=== PATIENT | male | born 1990 | race African-American/Black ===

== ENCOUNTER 2016-04-08 17:30 | Emergency (ER) | payer OTHER ==
[~2016-04-08] VITALS: Ht 170.2 cm; Wt 72.7 kg
[2016-04-08 17:31] VITALS: BP 125/71; PULSE 52; RESP 16; TEMP 98.2; O2SAT 95
[2016-04-08] MEDS ORDERED: ALBU6.7H INH (19:40)
--- NOTE | 2016-04-08 19:43 | PD ---
HPI Chief Complaint: Medication Refill Request Time Seen by Provider: 19:41 Travel History International Travel<30 days: No Contact w/Intl Traveler<30days: No Traveled to known affect area: No History of Present Illness HPI 26-year-old black male presents to emergency department requesting a refill of his inhaler. The patient states that he ran out of his inhaler. He uses it probably 5 times a week. He states that he felt some mild wheezing earlier today and then ran out of his inhaler. He is not having any shortness of breath or wheezing now. He does not have a primary care doctor. He denies any fever chills. No earache or sore throat. No nausea vomiting. No abdominal pain or diarrhea. [facility] Past Medical History Narrative Medical aSTHMA Tetanus Vaccination: < 5 Years Past Surgical History Surgical History: No Previous Surgery Social History Alcohol Use: Yes Tobacco Use: No Review of Systems Except as stated in HPI: all other systems reviewed are Neg Physical Exam Narrative GENERAL: Well-developed, well-nourished in no acute distress. Nontoxic appearing. HEAD: Normocephalic, atraumatic. EYES: Pupils equal round and reactive. Extraocular motions intact. No scleral icterus. No injection or drainage. ENT: TMs clear without erythema. The external auditory canals clear. Nose: clear . Posterior pharynx is pink and moist. No tonsillar edema or exudate. Uvula midline. Airway patent. NECK: Trachea midline.Supple, nontender, moves head freely. No central bony tenderness or spasm. CARDIOVASCULAR: Regular rate and rhythm without murmurs, gallops, or rubs. RESPIRATORY: Clear to auscultation. Breath sounds equal bilaterally. No wheezes , rales, or rhonchi. GASTROINTESTINAL: Abdomen soft, non-tender, nondistended. No hepato-splenomegaly , or palpable masses. No guarding. EXTREMITIES: No clubbing, cyanosis, or edema. No joint tenderness, effusion, or edema noted. BACK: Nontender without deformity or crepitance. No flank tenderness. Data Data Last Documented VS Vital Signs Date Time Temp Pulse Resp B/P Pulse Ox O2 Delivery O2 Flow Rate FiO2 04/08/16 17:31 98.2 52 16 125/71 95 Room Air MDM Medical Decision Making Medical Screen Exam Complete: Yes Emergency Medical Condition: Yes Medical Record Reviewed: Yes Differential Diagnosis MDM: High Differential diagnoses: Pneumonia, bronchitis, URI, asthma, RAD, legionnaire's disease, SARS, ARDS, influenza, bronchiolitis, RSV,PE,CHF Narrative Course This is asthma, medication refill Diagnosis Primary Impression: Asthma Qualified Code: J45.20 - Mild intermittent asthma without complication Additional Impression: Medication refill Patient Instructions: General Instructions Additional Instructions: Rest. Increase fluids. Tylenol and Advil. albuterol. Followup with your Dr. in one week. Return to the ER for any problems. Med/Other Pt SpecificInfo: Prescription(s) given Scripts Albuterol 6.7 GM Inh (Proventil Hfa 6.7 GM Inh)90 Mcg/Act Aer2 Puff INH Q6H PRN (SHORTNESS OF BREATH) #1 INHALER Prov:Cameron Amin MD 04/08/16 Disposition: 01 DISCHARGE HOME Condition: Stable Margarito Vargas Apr 08, 2016 19:43
== END 2016-04-08 20:01 | disposition home or self-care (01) ==
LOC: NEPB 17:30
DX: J45.909 Unspecified asthma, uncomplicated (principal); Z76.0 Encounter for issue of repeat prescription; F10.10 Alcohol abuse, uncomplicated
CPT/HCPCS: 99281